=== PATIENT | male | born 1935 | race Caucasian/White ===

== ENCOUNTER → 2016-09-05 | Outpatient (CLI) | payer OTHER, MEDICARE ==
[~2016-09-05] MED LIST: ATOR-22 PO; BUSP-8 PO; CZR50 PO; DYZ PO; FLUOCINONIDE TOP; GLIM1TAB2 PO; LCHC12280 TOP; LEVO25TA5 PO; MULT-190 PO; SYMIN160 INH; TIMO1SOL6 OPB; TRIA0.0216 TOP
[2016-09-05 12:57] VITALS: BP 153/53; PULSE 66; TEMP 36.5; O2SAT 97
--- NOTE | 2016-09-05 14:12 | Radiation Oncology Follow-Up ---
Radiation Oncology Follow-Up Date of Visit Sep 05, 2016. Reason For Visit Annual follow-up Radiation Completion Date 01/22/12 Diagnosis (1) Prostate cancer Status: Resolved Onset Date: 11/01/2011 Location: left lobe of the prostate Histology Subtype: adenocarcinoma Stage: ll Permanent Comment: Rising PSA clinical stage TIc Status post ultrasound-guided biopsies. Biopsy stage T2a Tyro grade 3+3 and 3+4 Status post seed implant with cesium 131 as monotherapy 01/22/2012 Last Edited By: Ibis Das on Aug 31, 2015 14:07 Interim History He's been doing well over this past year. He feels his urinary status is stable. He gave an AUA score of 6. Last year his score was 8. He completed expanded prostate cancer index composite for clinical practice and gave a score of 0 of 12 and urinary incontinence symptoms. He gave a score of 212 and urinary irritation symptoms. He gave a score of 0 12 and bowel symptoms. He gave a score of 5 of 12 in sexual symptoms. He gave a score of one of 12 in hormonal vitality symptoms. His last PSA was 10/19/2015 was less than 0.010. He has a known history of dysphagia. He recently was evaluated with ENT scoping. He was found to have some changes of the vocal cords. He was referred for acupuncture which does seem to be helping with the problems that he has had with swallowing. Allergies Coded Allergies: No Known Allergies (Unverified , 07/13/13) Home Medications Scheduled Atorvastatin (Lipitor), 20 MG PO DAILY Budesonide/Formoterol Fumarate (Symbicort 160/4.5 Inhaler ), 2 PUFFS INH BID Glimepiride (Glimepiride), 2 TAB PO BID Levothyroxine Sodium (Levothyroxine Sodium), 1 TAB PO DAILY Losartan Potassium (Cozaar *), 100 MG PO DAILY Ocuvite Preservision (Ocuvite Preservision), 1 TAB PO BID Timolol Hemihydrate 0.25% Oph (Betimol 0.25% Oph), 1 DROP OPB HS Triamterene/Hctz (Dyazide 37.5MG/25MG *), 1 CAP PO DAILY Scheduled PRN Lactic Acid (Ammonium Lactate Cream 12%), 1 APPLN TOP DIRECTED PRN Triamcinolone Acet 0.025% (Aristocort 0.025%), 1 APPLN TOP PRN PRN [fluocinonide cream], 0.18 % TOP BID PRN for affected skin Review of Systems Gastrointestinal: Symptoms: WNL Oral: Symptoms: No Problems Other Oral Symptoms: patient has "weak esophagus" getting acupuncture Respiratory: Symptoms: WNL Other Respiratory: CRUZ, Coughs daily after breakfast trying to clear throat Urinary: Symptoms: WNL, Nocturia Comments: Nocturia x 1, Urgency, See AUA & EPIC Skin: Symptoms: No Problems Physical Exam Vital Signs Date Time Temp Pulse Resp B/P Pulse Ox O2 Delivery O2 Flow Rate FiO2 09/05/16 12:57 36.5 66 16 153/53 97 Fatigue: None General Appearance: no apparent distress Eyes: normal inspection, EOMI ENT: normal ENT inspection, hearing grossly normal Neck: no adenopathy, thyroid normal Respiratory/Chest: lungs clear, normal breath sounds, no respiratory distress Cardiovascular: regular rate, rhythm, no gallop, no murmur Abdomen: non tender, soft Anal / Rectum: Normal sphincter tone. Prostate consistent with seed implant. No rectal masses no rectal bleeding. Extremities: no pedal edema Neurologic/Psychiatric: alert, normal mood/affect Skin: warm/dry Lymphatic: no adenopathy Assessment & Plan Plan: An order was given to have a PSA obtained in October. He'll be notified as to results. Continue regular follow-up with ENT as well as Dr. Lo. We asked him to return to our office in 1 year. He may call our office if he has any questions or concerns in the interim. Total Time In Follow-Up I spent 15 minutes speaking to the patient and performing examination. I spent 15 minutes reviewing information in completing this note. Copy To Isael Lo M.D.
== END | disposition home or self-care (01) ==
LOC: C.ONC 12:43
PROVIDERS: ATTEND Radiology Radiation Oncology
DX: Z08 Encounter for follow-up examination after completed treatment for malignant neoplasm (principal); Z92.3 Personal history of irradiation; Z85.46 Personal history of malignant neoplasm of prostate

== ENCOUNTER → 2016-10-22 | Outpatient (CLI) | payer OTHER, MEDICARE ==
[~2016-10-22] MED LIST changes: -BUSP-8 PO
[2016-10-22 12:50] LABS: ALT/SGPT 36 U/L (12-78); AST/SGOT 17 U/L (15-37); BLOOD UREA NITROGEN 23 mg/dl (7-18); BUN/CREATININE RATIO 14.2 (10-20); CALCIUM 8.6 mg/dl (8.5-10.1); CARBON DIOXIDE 30 mmol/L (21-32); CHLORIDE 99 mmol/L (98-107); GLUCOSE 148 mg/dl (70-99); HEMATOCRIT 44.5 % (42-52); MEAN CELL VOLUME 86.7 fL (80-100); MEAN CORPUSCULAR HEMOGLOBIN 29.6 pg (25-34); MEAN CORPUSCULAR HGB CONC 34.2 g/dl (32-36); MEAN PLATELET VOLUME 8.3 fL (7.4-10.4); PLATELET COUNT 178 K/uL (130-400); POTASSIUM 3.6 mmol/L (3.5-5.1); RED BLOOD COUNT 5.13 M/uL (4.7-6.1); SODIUM 141 mmol/L (136-145); WHITE BLOOD COUNT 10.46 K/uL (4.8-10.8)
[2016-10-22 13:01] LABS: ALB/GLOB RATIO 0.9 (0.9-2); ALKALINE PHOSPHATASE 81 U/L (45-117); CHOLESTEROL 101 mg/dl (0-200); CHOLESTEROL/HDL RATIO 2.5; HDL CHOLESTEROL 41 mg/dl; LDL CHOLESTEROL CALCULATED 32 mg/dl; TRIGLYCERIDES 142 mg/dl (0-150); VERY LOW DENSITY LIPOPROT CALC 28 mg/dl
[2016-10-22 13:16] LABS: ESTIMATED AVERAGE GLUCOSE 151 mg/dl; HA1C FLAG Normal (Normal)
[2016-10-22 13:27] LABS: RATIO 25.1 mcg/mg (0-30.0)
== END | disposition home or self-care (01) ==
LOC: C.LABBFT 09:19
PROVIDERS: ATTEND Radiology Radiation Oncology
DX: C61 Malignant neoplasm of prostate (principal); E11.21 Type 2 diabetes mellitus with diabetic nephropathy

== ENCOUNTER → 2017-01-30 | Outpatient (CLI) | payer OTHER, MEDICARE ==
[2017-01-30 18:41] LABS: BLOOD UREA NITROGEN 20 mg/dl (7-18); BUN/CREATININE RATIO 13.4 (10-20); CALCIUM 8.5 mg/dl (8.5-10.1); CARBON DIOXIDE 30 mmol/L (21-32); CHLORIDE 107 mmol/L (98-107); GLUCOSE 110 mg/dl (70-99); POTASSIUM 3.8 mmol/L (3.5-5.1); SODIUM 142 mmol/L (136-145)
== END | disposition home or self-care (01) ==
LOC: C.LABBFT 11:50
PROVIDERS: ATTEND Physician Assistant Medical
DX: R60.0 Localized edema (principal)

== ENCOUNTER → 2017-02-08 | Outpatient (CLI) | payer OTHER, MEDICARE ==
[2017-02-08 16:17] LABS: HEMATOCRIT 44.7 % (42-52); MEAN CELL VOLUME 90.5 fL (80-100); MEAN CORPUSCULAR HEMOGLOBIN 30.6 pg (25-34); MEAN CORPUSCULAR HGB CONC 33.8 g/dl (32-36); PLATELET COUNT 116 K/uL (130-400); RED BLOOD COUNT 4.94 M/uL (4.7-6.1); WHITE BLOOD COUNT 6.36 K/uL (4.8-10.8)
[2017-02-08 16:24] LABS: ALT/SGPT 29 U/L (12-78); BLOOD UREA NITROGEN 16 mg/dl (7-18); BUN/CREATININE RATIO 11.6 (10-20); CALCIUM 8.5 mg/dl (8.5-10.1); CARBON DIOXIDE 28 mmol/L (21-32); CHLORIDE 105 mmol/L (98-107); GLUCOSE 130 mg/dl (70-99); POTASSIUM 3.7 mmol/L (3.5-5.1); SODIUM 142 mmol/L (136-145)
[2017-02-08 16:35] LABS: ALB/GLOB RATIO 1.2 (0.9-2); ALKALINE PHOSPHATASE 66 U/L (45-117); AST/SGOT 14 U/L (15-37)
== END | disposition home or self-care (01) ==
LOC: C.LABBFT 11:39
PROVIDERS: ATTEND Internal Medicine
DX: R60.0 Localized edema (principal)

== ENCOUNTER → 2017-02-15 | Outpatient (CLI) | payer OTHER, MEDICARE ==
--- NOTE | 2017-02-15 13:41 | DIAGNOSTIC IMAGING REPORT ---
ABDOMEN AND PELVIS CT WITH ORAL CONTRAST CT DOSE: 717.70 mGy.cm HISTORY: Bilateral lower extremity edema. Colon cancer. TECHNIQUE: Multiaxial CT images of the abdomen and pelvis were performed following the use of oral contrast. COMPARISON STUDY: Chest CT 11/18/2012. FINDINGS: Linear density at the lung bases suggestive of scarring or atelectasis. There are few scattered subcentimeter pulmonary nodules within the lung bases with the largest in the right middle lobe measuring 5 mm. These remain stable and are therefore likely benign. No pneumoperitoneum. No pneumatosis. Multiple brachytherapy seeds within the prostate gland. No suspicious lytic or blastic osseous lesions. Mild hepatic steatosis. No hepatic or splenic masses. The gallbladder, pancreas, and adrenal glands are unremarkable. No renal stones or hydronephrosis. Mild bilateral perinephric edema. This is likely chronic. The bladder is not well-distended but appears within normal limits. Small fat-containing left inguinal hernia. Atrophy of the right rectus abdominis muscle. No retroperitoneal lymphadenopathy. Normal caliber abdominal aorta. No pelvic lymphadenopathy. No bowel wall thickening or obstruction. Prior appendectomy. Evaluation for venous thrombus is essentially nondiagnostic due to the lack of intravenous contrast. IMPRESSION: 1. No bowel wall thickening or obstruction. 2. No renal stones or hydronephrosis. 3. Small fat-containing left inguinal hernia. 4. Stable bibasilar subcentimeter pulmonary nodules. Therefore, these are considered to be benign. Electronically signed by: Kobe Gee M.D. 02/15/2017 1:39 PM Dictated Date/Time: 02/15/2017 1:32 PM
== END | disposition home or self-care (01) ==
LOC: C.CTS 11:11
PROVIDERS: ATTEND Internal Medicine
DX: R60.0 Localized edema (principal); R91.1 Solitary pulmonary nodule; K40.90 Unilateral inguinal hernia, without obstruction or gangrene, not specified as recurrent

== ENCOUNTER → 2017-04-23 | Outpatient (CLI) | payer OTHER, MEDICARE ==
[2017-04-23 17:57] LABS: BASO % 0.4 %; BASO ABS # 0.03 K/uL (0-0.2); COMPLETE YES; EOS % 2.3 %; HEMATOCRIT 46.9 % (42-52); IG% 0.1 %; LYMPH % 31.5 %; LYMPH ABS # 2.15 K/uL (1.2-3.4); MEAN CELL VOLUME 90.7 fL (80-100); MEAN CORPUSCULAR HEMOGLOBIN 29.6 pg (25-34); MEAN CORPUSCULAR HGB CONC 32.6 g/dl (32-36); MEAN PLATELET VOLUME 9.3 fL (7.4-10.4); MONO % 13.5 %; NEUT % 52.2 %; PLATELET COUNT 131 K/uL (130-400); RED BLOOD COUNT 5.17 M/uL (4.7-6.1); WHITE BLOOD COUNT 6.82 K/uL (4.8-10.8)
[2017-04-23 18:19] LABS: ALT/SGPT 33 U/L (12-78); BLOOD UREA NITROGEN 17 mg/dl (7-18); BUN/CREATININE RATIO 12.8 (10-20); CALCIUM 8.9 mg/dl (8.5-10.1); CARBON DIOXIDE 27 mmol/L (21-32); CHLORIDE 106 mmol/L (98-107); CHOLESTEROL 131 mg/dl (0-200); GLUCOSE 134 mg/dl (70-99); SODIUM 141 mmol/L (136-145)
[2017-04-23 18:29] LABS: ALB/GLOB RATIO 1.2 (0.9-2); ALKALINE PHOSPHATASE 71 U/L (45-117); AST/SGOT 24 U/L (15-37); CHOLESTEROL/HDL RATIO 2.9; HDL CHOLESTEROL 45 mg/dl; LDL CHOLESTEROL CALCULATED 56 mg/dl; TRIGLYCERIDES 152 mg/dl (0-150); VERY LOW DENSITY LIPOPROT CALC 30 mg/dl
[2017-04-24 06:06] LABS: ESTIMATED AVERAGE GLUCOSE 126 mg/dl; HA1C FLAG Normal (Normal)
== END | disposition home or self-care (01) ==
LOC: C.LABBFT 11:50
PROVIDERS: ATTEND Internal Medicine
DX: E11.21 Type 2 diabetes mellitus with diabetic nephropathy (principal)

== ENCOUNTER → 2017-09-05 | Outpatient (CLI) | payer OTHER, MEDICARE ==
[~2017-09-05] MED LIST changes: +ADVIN25/60 INH; +FLUO0.0566 TOP; +FURO-85 PO; +SKINCRE34 TOP; +SPCCR30 TOP
[2017-09-05 13:39] VITALS: BP_SYST 180; BP_SYST 191; BP_DIAS 79; BP_DIAS 93; PULSE 60; TEMP 36.7; O2SAT 97
--- NOTE | 2017-09-05 16:10 | Radiation Oncology Follow-Up ---
Radiation Oncology Follow-Up Date of Visit Sep 05, 2017. Reason For Visit Annual follow-up Radiation Completion Date 01/22/12 Cesium 131 seed implant for prostate cancer Diagnosis (1) Prostate cancer Status: Resolved Onset Date: 11/01/2011 Location: left lobe of the prostate Histology Subtype: adenocarcinoma Stage: ll Permanent Comment: Rising PSA clinical stage TIc Status post ultrasound-guided biopsies. Biopsy stage T2a Browning grade 3+3 and 3+4 Status post seed implant with cesium 131 as monotherapy 01/22/2012 Last Edited By: Ibis Das on Aug 31, 2015 14:07 Interim History He is been doing well from urinary standpoint. Today he gave his AUA score of 10. Last year he gave a score of 6. He does have increased urination in the morning due to his diuretic. He completed and expanded prostate cancer index composite for clinical practice and gave a score of one of 12 urinary incontinence symptoms. He gave a score of one of 12 and urinary irritation symptoms. He gave a score of 0 of 12 and bowel symptoms. He gave a score of 7 of 12 and sexual symptoms. He gave a score of 0 of 12 and hormonal vitality symptoms. His total was 9 of 60. He had a PSA performed 10/22/2016. That was less than 0.010. His PSAs have been excellent since 2011. He has had issues with hoarseness of the voice. He also had problems with swallowing. He saw an hospice volunteer coordinator and is greatly improved. He has had issues lately with peripheral edema. He is being followed by his PCP and is on a diuretic. Allergies Coded Allergies: No Known Allergies (Unverified , 07/13/13) Home Medications Scheduled Atorvastatin (Lipitor), 20 MG PO DAILY Fluocinonide (Fluocinonide), 1 APPLN TOP BID Furosemide (Lasix), 1 TAB PO DAILY Glimepiride (Glimepiride), 2 TAB PO BID Levothyroxine Sodium (Levothyroxine Sodium), 1 TAB PO DAILY Losartan Potassium (Cozaar *), 100 MG PO DAILY Ocuvite Preservision (Ocuvite Preservision), 1 TAB PO BID Timolol Hemihydrate 0.25% Oph (Betimol 0.25% Oph), 1 DROP OPB HS Scheduled PRN Econazole Nitrate (Econazole Nitrate Crm 1% 30 Gm), 1 APPLN TOP BID PRN for Itching Eucerin (Eucerin), 1 APPLN TOP UD PRN for Itching Fluticasone Prop/Salmeterol (Advair Diskus 250/50 60 Dose), 1 PUFFS INH BID PRN for SOB/Wheezing Lactic Acid (Ammonium Lactate Cream 12%), 1 APPLN TOP DIRECTED PRN Lactic Acid (Ammonium Lactate Cream 12%), 1 APPLN TOP BID PRN for Itching Triamcinolone Acet 0.025% (Aristocort 0.025%), 1 APPLN TOP PRN PRN Review of Systems Gastrointestinal: Symptoms: WNL GI Comments: No fiber supplements; Oral: Symptoms: No Problems Other Oral Symptoms: patient has "weak esophagus" getting acupuncture Respiratory: Symptoms: Dry Cough, SOB With Exertion Sputum Character: Hoarseness of voice that he relates to his inhaler; Other Respiratory: Nothing more than typical;relates this to his COPD Urinary: Symptoms: WNL, Nocturia Comments: Doesn't ignore urge to void;2 hrs is limit betw'n voids; Skin: Symptoms: No Problems Physical Exam Vital Signs Date Time Temp Pulse Resp B/P (MAP) Pulse Ox O2 Delivery O2 Flow Rate FiO2 09/05/17 13:39 36.7 60 16 191/79 97 180/93 Fatigue: None General Appearance: no apparent distress Eyes: normal inspection, EOMI ENT: normal ENT inspection, hearing grossly normal Respiratory/Chest: lungs clear, no respiratory distress, no accessory muscle use Cardiovascular: regular rate, rhythm, no gallop, no murmur Abdomen: non tender, soft, no organomegaly Anal / Rectum: Mildly laxed sphincter tone. There are external and internal hemorrhoids. Prostate is consistent with a seed implant. There are no rectal masses and no rectal bleeding. Extremities: no pedal edema Neurologic/Psychiatric: no motor/sensory deficits, alert, normal mood/affect Skin: warm/dry Pain Management Patient Reports Pain: No Pain Location: None Patient Preferred Pain Scale: 0 - 10 Initial Pain Intensity: 0.0 Pain Management Plan He denies pain therefore requires no pain management. Laboratory Laboratory Results: were reviewed Laboratory Comments: Reviewed in the interim history. Pathology Pathology Results: not applicable Imaging Imaging Studies: not applicable Assessment & Plan Plan: He will be due for a PSA in October. He was given an order and instructions on where to present for the laboratory study here at the hospital. He'll continue follow-up with Dr. Lo. A follow-up appointment with our office was not given. He may continue his PSAs through Dr. Lo's office. These should be performed once year. Follow-up digital rectal examinations can also performed through the primary care's office. He may call our office if he has any questions or concerns. Total Time In Follow-Up I spent 20 minutes being to the patient and performing examination. I spent 15 minutes reviewing information and completing this note. Copy To Isael Lo M.D.
== END | disposition home or self-care (01) ==
LOC: C.ONC 13:18
PROVIDERS: ATTEND Physician Assistant Medical
DX: Z08 Encounter for follow-up examination after completed treatment for malignant neoplasm (principal); Z92.3 Personal history of irradiation; Z85.46 Personal history of malignant neoplasm of prostate

== ENCOUNTER → 2017-09-09 | Outpatient (CLI) | payer OTHER, MEDICARE ==
[~2017-09-09] MED LIST changes: -DYZ PO; -FLUOCINONIDE TOP; -SYMIN160 INH
[2017-09-09 12:39] LABS: BASO % 0.4 %; BASO ABS # 0.03 K/uL (0-0.2); EOS % 4.2 %; EOS ABS # 0.33 K/uL (0-0.5); HEMATOCRIT 47.6 % (42-52); HEMOGLOBIN 16.1 g/dL (14.0-18.0); IG# 0.02 K/uL (0.00-0.02); LYMPH % 24.9 %; LYMPH ABS # 1.94 K/uL (1.2-3.4); MEAN CELL VOLUME 88.5 fL (80-100); MEAN CORPUSCULAR HEMOGLOBIN 29.9 pg (25-34); MEAN CORPUSCULAR HGB CONC 33.8 g/dl (32-36); MONO % 14.2 %; MONO ABS # 1.11 K/uL (0.11-0.59); NEUT ABS # 4.36 K/uL (1.4-6.5); PLATELET COUNT 116 K/uL (130-400); RED CELL DISTRIBUTION WIDTH CV 13.7 % (11.5-14.5); RED CELL DISTRIBUTION WIDTH SD 44.2 fL (36.4-46.3); WHITE BLOOD COUNT 7.79 K/uL (4.8-10.8)
[2017-09-09 12:53] LABS: HEMOGLOBIN A1C 6.2 % (4.5-5.6)
[2017-09-09 13:39] LABS: ALBUMIN 3.7 gm/dl (3.4-5.0); ALT/SGPT 41 U/L (12-78); AST/SGOT 24 U/L (15-37); BLOOD UREA NITROGEN 18 mg/dl (7-18); CALCIUM 8.6 mg/dl (8.5-10.1); CARBON DIOXIDE 31 mmol/L (21-32); CREATININE 1.46 mg/dl (0.60-1.40); GLUCOSE 160 mg/dl (70-99); POTASSIUM 3.4 mmol/L (3.5-5.1); SODIUM 139 mmol/L (136-145)
[2017-09-09 13:50] LABS: ALKALINE PHOSPHATASE 93 U/L (45-117); CHOLESTEROL 107 mg/dl (0-200); LDL CHOLESTEROL CALCULATED 32 mg/dl; TOTAL PROTEIN 7.3 gm/dl (6.4-8.2)
== END | disposition home or self-care (01) ==
LOC: C.LABBFT 09:00
PROVIDERS: ATTEND Internal Medicine
DX: E11.21 Type 2 diabetes mellitus with diabetic nephropathy (principal)

== ENCOUNTER → 2017-11-12 | Outpatient (CLI) | payer OTHER, MEDICARE | END | disposition home or self-care (01) | LOC: C.LAB 11:37 | PROVIDERS: ATTEND Physician Assistant Medical | DX: C61 Malignant neoplasm of prostate (principal) ==

== ENCOUNTER → 2018-03-10 | Outpatient (CLI) | payer OTHER, MEDICARE ==
[2018-03-10 17:57] LABS: BLOOD UREA NITROGEN 19 mg/dl (7-18); CALCIUM 8.6 mg/dl (8.5-10.1); CARBON DIOXIDE 29 mmol/L (21-32); CREATININE 1.39 mg/dl (0.60-1.40); GLUCOSE 136 mg/dl (70-99); POTASSIUM 3.9 mmol/L (3.5-5.1); SODIUM 141 mmol/L (136-145)
== END | disposition home or self-care (01) ==
LOC: C.LABBFT 15:32
PROVIDERS: ATTEND Physician Assistant Medical
DX: I10 Essential (primary) hypertension (principal)

== ENCOUNTER → 2018-03-21 | Outpatient (CLI) | payer OTHER, MEDICARE ==
[2018-03-21 18:00] LABS: ALBUMIN 3.9 gm/dl (3.4-5.0); BLOOD UREA NITROGEN 19 mg/dl (7-18); CALCIUM 8.6 mg/dl (8.5-10.1); CARBON DIOXIDE 28 mmol/L (21-32); CREATININE 1.49 mg/dl (0.60-1.40); GLUCOSE 175 mg/dl (70-99); PHOSPHORUS 3.6 mg/dl (2.5-4.9); SODIUM 137 mmol/L (136-145)
== END | disposition home or self-care (01) ==
LOC: C.LABBFT 14:26
PROVIDERS: ATTEND Physician Assistant Medical
DX: I10 Essential (primary) hypertension (principal)

== ENCOUNTER 2023-09-12 19:40 | Inpatient (IN) ==
[2023-09-12] MEDS ORDERED: ALBUT/IPRATROP 3MG/0.5MG NEB 3 ML VIAL ONE (20:04)
[2023-09-12] MEDS ORDERED: methylPREDNISolone 125 MG/2 ML VIAL ONE (20:04)
[2023-09-12] MEDS ORDERED: ALBUT/IPRATROP 3MG/0.5MG NEB 3 ML VIAL NEB STA ×2 (20:04→20:25)
[2023-09-12] MEDS ORDERED: methylPREDNISolone 125 MG/2 ML VIAL IV STA (20:04)
[2023-09-12] MEDS ORDERED: ALBUT/IPRATROP 3MG/0.5MG NEB 3 ML VIAL NEB ONE (20:14)
[2023-09-12 20:37] LABS: Base Excess VBG 0 mEq/L; HCO3 VBG 29 mmol/L; Oxygen Saturation VBG 69.5 %; PCO2 VBG 68 mmHg (38-50); PO2 VBG 49 mmHg; pH VBG 7.24 (7.36-7.41)
[2023-09-12 20:58] LABS: Anion Gap 13 (3-11); BUN Creatinine Ratio 12.6 (10-20); Blood Urea Nitrogen 13 mg/dl (6-23); Calcium 9.5 mg/dl (8.6-10.3); Carbon Dioxide 26 mmol/L (21-32); Chloride 95 mmol/L (98-107); Est GFR (African American) 74.3 ml/min; Est GFR (Non-African American) 64.1 ml/min; Glucose 142 mg/dl (70-99(Fasting)); Lipase 27 U/L (11-82); Potassium 3.9 mmol/L (3.5-5.1); Sodium 134 mmol/L (136-145)
[2023-09-12 21:04] LABS: Troponin I High Sensitivity 17.3 pg/ml (0-20)
[2023-09-12 21:06] LABS: Basophils # (auto) 0.05 K/uL (0.00-0.20); Basophils % (auto) 0.3 %; Eosinophils # (auto) 0.03 K/uL (0.00-0.50); Eosinophils % (auto) 0.2 %; Hematocrit (blood only) 53.5 % (42.0-52.0); Hemoglobin 17.3 g/dl (14.0-18.0); Immature Granulocytes # (auto) 0.08 K/uL (0.01-0.20); Immature Granulocytes % (auto) 0.5 %; Lymphocytes # (auto) 2.42 K/uL (1.20-3.40); Lymphocytes % (auto) 14.9 %; Mean Corpuscular Hemoglobin 29.7 pg (25.0-34.0); Mean Corpuscular Hgb Conc 32.3 g/dL (32.0-36.0); Mean Corpuscular Volume 91.8 fL (80.0-100.0); Mean Platelet Volume 8.7 fL (9.4-12.4); Monocytes # (auto) 1.65 K/uL (0.11-0.59); Monocytes % (auto) 10.2 %; Neutrophils # (auto) 11.99 K/uL (1.40-6.50); Neutrophils % (auto) 73.9 %; Platelet Count 124 K/uL (130-400); RDW Standard Deviation 43.8 fL (36.4-46.3); Red Blood Count 5.83 M/uL (4.70-6.10); White Blood Count 16.22 K/ul (4.8-10.8)
[2023-09-12 21:10] LABS: INR 1.1 (0.9-1.1); Partial Thromboplastin Ratio 1.1; Partial Thromboplastin Time 31 Seconds (21-31); Prothrombin Time 12.1 Seconds (9.0-12.0)
[2023-09-12] MEDS ORDERED: AZITHROMYCIN 500 MG in DEXTROSE 5% 250 ML IV STA (21:28)
[2023-09-12 21:43] LABS: Adenovirus PCR Not Detected (NotDetected); Bordetella parapertussis PCR Not Detected (NotDetected); Bordetella pertussis PCR Not Detected (NotDetected); Chlamydia pneumoniae PCR Not Detected (NotDetected); Coronavirus CoV-2 (COVID19)PCR Not Detected (NotDetected); Coronavirus HKU1 PCR Not Detected (NotDetected); Coronavirus NL63 PCR Not Detected (NotDetected); Coronavirus OC43PCR Not Detected (NotDetected); Human Metapneumovirus PCR Not Detected (NotDetected); Influenza A PCR Not Detected (NotDetected); Influenza B PCR Not Detected (NotDetected); Mycoplasma pneumoniae PCR Not Detected (NotDetected); Parainfluenza Virus 1 PCR Not Detected (NotDetected); Parainfluenza Virus 2 PCR Not Detected (NotDetected); Parainfluenza Virus 3 PCR Not Detected (NotDetected); Parainfluenza Virus 4 PCR Not Detected (NotDetected); Respiratory Syncytial VirusPCR Not Detected (NotDetected); Rhinovirus/Enterovirus PCR Not Detected (NotDetected)
[2023-09-12 21:46] LABS: Coronavirus 229E PCR DETECTED (NotDetected)
--- NOTE | 2023-09-12 22:43 | Emergency Department Note ---
History of Present Illness General Chief Complaint: Shortness of Breath/Dyspnea Stated Complaint: TROUBLE BREATHING, COPD, RECENT MED CHANGE Time Seen by Provider: 09/12/23 19:59 History of Present Illness Provider Complaint: shortness of breath Onset (ago): day(s) (2) Severity: severe Consistency/Duration: + progressively worsening Relieved By: + nothing Exacerbated By: + lying flat, + exertion and + coughing Context: + other (Patient reports his symptoms began after he got an RSV vaccine yesterday) Known history of: COPD (No history of intubation or ICU admission for his breathing) Associated symptoms: + cough, + wheezing, + sputum production, + orthopnea and + chest congestion; no hemoptysis or no syncope Related Data Home oxygen amount: none Home Medications Medication Instructions Recorded Confirmed Type albuterol sulfate 90 mcg/actuation 2 puffs inhalation Q4H PRN 03/25/19 09/12/23 History aerosol inhaler Wheezing #1 g econazole 1 % topical cream 1 appln topical BID PRN Rash #60 03/25/19 09/12/23 History grams fluocinonide 0.1 % topical cream 1 appln topical BID PRN Rash #1 g 03/25/19 09/12/23 History timolol maleate 0.5 % eye drops 1 drops ophthalmic (eye) HS 03/25/19 09/12/23 History multivitamin 1 tab PO QAM 04/14/21 09/12/23 History clotrimazole 1 % topical cream 1 applic topical BID 7 days #15 08/21/22 09/12/23 Rx (Antifungal (clotrimazole)) grams furosemide 40 mg tablet 40 mg PO QAM #90 tabs 10/05/22 09/12/23 Rx atorvastatin 20 mg tablet 20 mg PO PM #90 tabs 12/03/22 09/12/23 Rx metformin 500 mg tablet,extended 500 mg PO DAILY #90 tabs 03/28/23 09/12/23 Rx release 24 hr empagliflozin 25 mg tablet 25 mg PO DAILY 90 days #90 tabs 06/05/23 09/12/23 Rx (Jardiance) amlodipine 10 mg tablet 10 mg PO QAM #90 tabs 06/06/23 09/12/23 Rx levothyroxine 50 mcg tablet 50 mcg PO QAM #90 tabs 06/07/23 09/12/23 Rx lisinopril 40 mg tablet 40 mg PO QAM #90 tabs 06/07/23 09/12/23 Rx fluticasone 100 mcg-salmeterol 50 1 inh inhalation BID 30 days #60 ea 09/02/23 09/12/23 Rx mcg/dose blistr powdr for inhalation (Wixela Inhub) metoprolol succinate 25 mg 25 mg PO DAILY #30 tabs 09/02/23 09/12/23 Rx tablet,extended release 24 hr triamcinolone acetonide 0.1 % 1 applic topical DAILY #30 grams 09/02/23 09/12/23 Rx topical cream vitamins A,C,W-gzxr-zismnn 2,148 2 tab PO BID 09/12/23 09/12/23 History mcg-113 mg-45 mg-17.4 mg tablet Allergies Allergy/AdvReac Type Severity Reaction Status Date / Time hydralazine AdvReac Severe 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 Villalobos Chronic obstructive pulmonary disease Thrombocytopenia Prostate cancer (11/01/11) "Rising PSA clinical stage TIc Status post ultrasound-guided biopsies. Biopsy stage T2a Raphael grade 3+3 and 3+4 Status post seed implant with cesium 131 as monotherapy 01/22/2012 " Surgical History History of cataract surgery B/L August and September 2021 History of colonoscopy Hx of inguinal hernia repair left S/P trigger finger release several History of tooth extraction Hx of surgical procedure parotid gland surgery left side S/P partial colectomy Family History Mother Hypertension Father Cancer lung Denies family history of Ovarian cancer Prostate cancer Kidney disease Myocardial infarction Breast cancer Colorectal cancer Social History Smoking Status: Unknown if ever smoked Tobacco Type: Cigarettes Age Started Using Tobacco: 18; Age Quit Using Tobacco: 59; packs per day: 1; Second Hand Exposure: No; Do You Dip or Chew Tobacco: No; Hx Alcohol Use: No Hx Substance Use: No Preferred Language: Occitan Communication Ability: Effective Visual Impairment: No Limitations Hearing Ability: Use of Hearing Aid Phone Specialist Required: No Beliefs That Will Affect Care: None marital status: / Current Living Situation: Alone current occupational status: retired 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[employer], 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 Feels Safe at Home: Yes Childhood Exposure to Second-Hand Smoke: Yes Diet: regular Dental Care, Regularly: Yes Physical Activity Frequency: Daily Seatbelt Use: always Sunscreen Use: Yes Assistive Devices: Glasses and Hearing Aid - Bilateral Physical Exam 2 Vital Signs: Vital Signs - 24 hr 09/12/23 19:55 09/12/23 20:00 09/12/23 20:27 Temperature 36.6 C Temperature Source Temporal Artery Sc an Pulse Rate 99 H 100 H Pulse Rate [Finger ] 87 Respiratory Rate 24 29 H Respiratory Effort / Characteristics Non-Labored Spontaneous Respiratory Depth Normal Respiratory Patter n Blood Pressure 172/90 H Blood Pressure Rossy n 117 Pulse Oximetry 71 L 95 Oxygen Delivery Me thod Room Air BiPAP Oxygen Flow Rate Fraction of Inspir ed Oxygen 28 SaO2/FiO2 Ratio Sepsis Recent Feve r Within 48 Hours No Sepsis New/Unexpla ined Change in Men sheba Status No Sepsis Action Take n by Nursing No Action Required 09/12/23 20:27 09/12/23 20:31 09/12/23 20:31 Temperature Temperature Source Pulse Rate 87 Pulse Rate [Finger ] Respiratory Rate 27 H Respiratory Effort / Characteristics Non-Labored Sponta neous Spontaneous Short of Breath Respiratory Depth Normal Respiratory Patter n Regular Tachypnea Blood Pressure Blood Pressure Rossy n Pulse Oximetry 96 100 Oxygen Delivery Me thod BiPAP BiPAP Oxygen Flow Rate 28 Fraction of Inspir ed Oxygen 28 28 SaO2/FiO2 Ratio Sepsis Recent Feve r Within 48 Hours Sepsis New/Unexpla ined Change in Men sheba Status Sepsis Action Take n by Nursing 09/12/23 21:18 09/12/23 22:32 Temperature Temperature Source Pulse Rate 73 104 H Pulse Rate [Finger ] Respiratory Rate 24 20 Respiratory Effort / Characteristics Non-Labored Sponta neous Respiratory Depth Normal Respiratory Patter n Regular Blood Pressure Blood Pressure Rossy n Pulse Oximetry 99 100 Oxygen Delivery Me thod BiPAP Oxygen Flow Rate Fraction of Inspir ed Oxygen 28 28 SaO2/FiO2 Ratio 353 Sepsis Recent Feve r Within 48 Hours Sepsis New/Unexpla ined Change in Men sheba Status Sepsis Action Take n by Nursing Physical Exam: Physical Exam GENERAL: oriented to person, place, and time. appears well-developed and well- nourished. HENT: Exam performed. - Head: Normocephalic and atraumatic. EYES: Conjunctivae and EOM are normal. Right eye exhibits no discharge. Left eye exhibits no discharge. No scleral icterus. NECK: Normal range of motion. Neck supple. No JVD present. CV: Normal rate, regular rhythm, normal heart sounds and intact distal pulses. There is no peripheral edema. Palpable radial pulses bue. PULM/CHEST: Expiratory wheezes bilaterally. Rhonchi bilaterally. ABD: The abdomen is soft. There is no tenderness. NEURO: Motor and sensation grossly intact. SKIN: Skin is warm and dry. He is not diaphoretic. PSYCH: normal mood and affect. Behavior is normal. Judgment and thought content normal. Course Course 1958: The patient was evaluated in room C5. A complete history and physical exam was performed Cardiac monitoring: An order was placed for continuous cardiac monitoring. The monitor shows a rate of 90 with sinus rhythm interpreted by me Patient found to be hypoxic on room air. Supplemental oxygen was applied. Chest x-ray was obtained and it did not show any pneumothorax or congestive changes. Possible pneumonia versus COPD. Patient be started on BiPAP. DuoNebs ordered for the patient as well as Solu-Medrol 125 mg. Bio fire and labs will be sent off. 2034: Patient tolerating BiPAP well 10/6 at 28% FiO2. 2144: Vital signs stable on supplemental oxygen via BiPAP. Labs show leukocytosis 16.22. Venous pH 7.24 venous pCO2 68 venous bicarb 29. High sensitive troponin 17.3. BNP 225. Chest x-ray shows no cardiomegaly or congestive changes does show possible right sided infiltrate. Patient will be treated with azithromycin also in case of any COPD exacerbation. Will await BioFire results to see if any other antibiotics are needed. [facility] team Dr. Paiz's team notified. 2215: Patient is positive for coronavirus 229E. No additional antibiotics given. Administered Medications Azithromycin 500 mg/ Dextrose 255 mls @ 127.5 mls/hr IV NOW STA Stop: 09/12/23 23:27 Last Admin: 09/12/23 22:05 Dose: 127.5 mls/hr Documented By: CPB Discontinued Medications Albuterol (Albut/Ipratrop 3mg/0.5mg Neb 3 Ml Vial) Confirm Administered Dose 3 ml .ROUTE .STK-MED ONE Stop: 09/12/23 20:05 Last Admin: 09/12/23 20:47 Dose: Not Given Documented By: VELVET Albuterol (Albut/Ipratrop 3mg/0.5mg Neb 3 Ml Vial) 3 ml NEB NOW STA; Protocol Stop: 09/12/23 20:05 Last Admin: 09/12/23 20:47 Dose: Not Given Documented By: VELVET Albuterol (Albut/Ipratrop 3mg/0.5mg Neb 3 Ml Vial) 12 ml NEB ONE ONE; Protocol Stop: 09/12/23 20:15 Last Admin: 09/12/23 20:46 Dose: Not Given Documented By: VELVET Albuterol (Albut/Ipratrop 3mg/0.5mg Neb 3 Ml Vial) 12 ml NEB NOW STA; Protocol Stop: 09/12/23 20:26 Last Admin: 09/12/23 20:26 Dose: 12 ml Documented By: VELVET Methylprednisolone (Methylprednisolone 125 Mg/2 Ml Vial) Confirm Administered Dose 125 mg .ROUTE .STK-MED ONE Stop: 09/12/23 20:05 Last Admin: 09/12/23 20:30 Dose: Not Given Documented By: CPB Methylprednisolone (Methylprednisolone 125 Mg/2 Ml Vial) 125 mg IV NOW STA Stop: 09/12/23 20:05 Last Admin: 09/12/23 20:30 Dose: 125 mg Documented By: CPB Medical Decision Making Laboratory Data Attestation: I reviewed the patient's lab results. 09/12/23 20:14 09/12/23 20:14 Lab Results 09/12/23 Range/Units 20:14 WBC 16.22 H (4.8-10.8) K/ul RBC 5.83 (4.70-6.10) M/uL Hgb 17.3 (14.0-18.0) g/dl Hct 53.5 H (42.0-52.0) % MCV 91.8 (80.0-100.0) fL MCH 29.7 (25.0-34.0) pg MCHC 32.3 (32.0-36.0) g/dL RDW Std Deviation 43.8 (36.4-46.3) fL RDW Coeff of Mode 13.0 (11.5-14.5) % Plt Count 124 L (130-400) K/uL MPV 8.7 L (9.4-12.4) fL Immature Gran % (Auto) 0.5 % Neut % (Auto) 73.9 % Lymph % (Auto) 14.9 % Milam % (Auto) 10.2 % Eos % (Auto) 0.2 % Baso % (Auto) 0.3 % Neut # (Auto) 11.99 H (1.40-6.50) K/uL Lymph # (Auto) 2.42 (1.20-3.40) K/uL Milam # (Auto) 1.65 H (0.11-0.59) K/uL Eos # (Auto) 0.03 (0.00-0.50) K/uL Baso # (Auto) 0.05 (0.00-0.20) K/uL Immature Gran # (Auto) 0.08 (0.01-0.20) K/uL PT 12.1 H (9.0-12.0) Seconds INR 1.1 (0.9-1.1) APTT 31 (21-31) Seconds PTT Ratio 1.1 VBG pH 7.24 L (7.36-7.41) VBG pCO2 68 H (38-50) mmHg VBG pO2 49 mmHg VBG HCO3 29 mmol/L VBG O2 Saturation 69.5 % VBG Base Excess 0 mEq/L Sodium 134 L (136-145) mmol/L Potassium 3.9 (3.5-5.1) mmol/L Chloride 95 L (98-107) mmol/L Carbon Dioxide 26 (21-32) mmol/L Anion Gap 13 H (3-11) BUN 13 (6-23) mg/dl Creatinine 1.03 (0.6-1.4) mg/dl Est Cr Clr Drug Dosing Not Reportable Est GFR ( Amer) 74.3 ml/min Est GFR (Non-Af Amer) 64.1 ml/min BUN/Creatinine Ratio 12.6 (10-20) Glucose 142 H (70-99(Fasting)) mg/dl Calcium 9.5 (8.6-10.3) mg/dl Troponin I High Sens 17.3 (0-20) pg/ml B-Natriuretic Peptide 225 H (0-100) pg/ml Lipase 27 (11-82) U/L Adenovirus (PCR) Not Detected (NotDetected) B. pertussis DNA (PCR) Not Detected (NotDetected) B.parapertussis DNA PCR Not Detected (NotDetected) C. pneumoniae DNA (PCR) Not Detected (NotDetected) Coronavirus OC43 (PCR) Not Detected (NotDetected) Coronavirus HKU1 (PCR) Not Detected (NotDetected) Coronavirus 229E (PCR) DETECTED A* (NotDetected) SARS-CoV-2 (PCR) Not Detected (NotDetected) Coronavirus NL63 (PCR) Not Detected (NotDetected) Human Metapneumovir PCR Not Detected (NotDetected) Influenza Type A (PCR) Not Detected (NotDetected) Influenza Type B (PCR) Not Detected (NotDetected) M. pneumoniae (PCR) Not Detected (NotDetected) Parainfluenza 1 (PCR) Not Detected (NotDetected) Parainfluenza 2 (PCR) Not Detected (NotDetected) Parainfluenza 3 (PCR) Not Detected (NotDetected) Parainfluenza 4 (PCR) Not Detected (NotDetected) RSV (PCR) Not Detected (NotDetected) Entero/Rhino (PCR) Not Detected (NotDetected) Imaging Data Attestation: I personally reviewed and interpreted this imaging study as follows: My Impression: Right-sided infiltrate. No pneumothorax. No cardiomegaly or congestive changes. No free air in the diaphragm no skeletal fractures. ECG Data Attestation: I personally reviewed and interpreted this ECG as follows: Interpretation: Sinus rhythm with rate 96. IN 212 QRS [address] elevation or ST depression. First-degree AV block present. PVCs present. [facility] Narrative 195: The patient was evaluated in room C5. A complete history and physical exam was performed Cardiac monitoring: An order was placed for continuous cardiac monitoring. The monitor shows a rate of 90 with sinus rhythm interpreted by me Patient found to be hypoxic on room air. Supplemental oxygen was applied. Chest x-ray was obtained and it did not show any pneumothorax or congestive changes. Possible pneumonia versus COPD. Patient be started on BiPAP. DuoNebs ordered for the patient as well as Solu-Medrol 125 mg. Bio fire and labs will be sent off. 2034: Patient tolerating BiPAP well 10/6 at 28% FiO2. 2144: Vital signs stable on supplemental oxygen via BiPAP. Labs show leukocytosis 16.22. Venous pH 7.24 venous pCO2 68 venous bicarb 29. High sensitive troponin 17.3. BNP 225. Chest x-ray shows no cardiomegaly or congestive changes does show possible right sided infiltrate. Patient will be treated with azithromycin also in case of any COPD exacerbation. Will await BioFire results to see if any other antibiotics are needed. Patient will be admitted to the [facility] team Dr. Paiz's team notified. 2214: Patient is positive for coronavirus 229E. No additional antibiotics given. Impression & Plan Hypoxia, COPD exacerbation, Coronavirus infection Critical Care Time Critical Care Time: Yes Total Critical Care Time: 49 I have personally spent greater than 49 minutes of critical care time in the direct management of this patient. This includes bedside care, interpretation of diagnostic studies, and testing, discussion with consultants, patient, and family members, and other required patient management activities. This 49 minutes is in excess of all separately billable procedures. Discharge Plan Visit Data Chief Complaint: Shortness of Breath/Dyspnea Stated Complaint: TROUBLE BREATHING, COPD, RECENT MED CHANGE ED Provider: Abdoul Wilson Discharge Problem: Hypoxia, COPD exacerbation, Coronavirus infection Patient Disposition: Admitted As Inpatient Forms Stand Alone Forms: My [facility] Prescriptions Prescriptions: No Action clotrimazole [Antifungal (clotrimazole)] 1 % cream 1 applic topical BID 7 Days Qty: 15 0RF furosemide 40 mg tablet 40 mg PO QAM Qty: 90 3RF atorvastatin 20 mg tablet 20 mg PO PM Qty: 90 3RF metformin 500 mg tablet extended release 24 hr 500 mg PO DAILY Qty: 90 3RF Jardiance 25 mg tablet 25 mg PO DAILY 90 Days Qty: 90 3RF amlodipine 10 mg tablet 10 mg PO QAM Qty: 90 3RF levothyroxine 50 mcg tablet 50 mcg PO QAM Qty: 90 3RF lisinopril 40 mg tablet 40 mg PO QAM Qty: 90 3RF econazole 1 % cream 1 appln topical BID PRN (Reason: Rash) Qty: 60 fluocinonide 0.1 % cream 1 appln topical BID PRN (Reason: Rash) Qty: 1 albuterol sulfate 90 mcg/actuation HFA aerosol inhaler 2 puffs inhalation Q4H PRN (Reason: Wheezing) Qty: 1 timolol maleate 0.5 % drops 1 drops OP HS metoprolol succinate 25 mg tablet extended release 24 hr 25 mg PO DAILY Qty: 30 2RF triamcinolone acetonide 0.1 % cream 1 applic topical DAILY Qty: 30 0RF fluticasone propion-salmeterol [Wixela Inhub] 100-50 mcg/dose blister with device 1 inh inhalation BID 30 Days Qty: 60 3RF multivitamin Tablet 1 tab PO QAM Ocuvite Preservision 2,148 mcg-113 mg-45 mg-17.4mg Tablet 2 tab PO BID Rx Instructions: administer with AM and PM meals Referrals Referrals: Prisca Arenas MD [Primary Care Provider] -
--- NOTE | 2023-09-13 00:34 | History & Physical Report ---
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 twice daily Duonebs every 4 hours while awake and every 2 hours when necessary. Azithromycin 500 mg IV daily Ceftriaxone 2 g IV daily Continue Breo Ellipta and Advair Droplet precautions Target pulse ox 92% Diabetes mellitus- Hold empagliflozin and metformin Placed on Accu-Cheks with NovoLog SSI, expect increase while on IV Solu-Medrol Hypertension- Continue amlodipine, furosemide, and lisinopril History of Present Illness Chief Complaint: The patient presents to the emergency department with worsening shortness of breath over the past 2 to 3 days, and reports he got the RSV vaccine yesterday Primary Care Provider: Prisca Arenas MD The patient is an 88-year-old male with a past medical history including vitamin D deficiency, MGUS, hypothyroidism, hyperlipidemia, GERD, COPD, CKD stage III, hypertension, diabetes mellitus and history of tobacco last use in the . He has become progressively more short of breath over the past 2 to 3 days, which began before administration of the recent RSV vaccine. In the emergency department, due to hypoxia, he was placed on BiPAP, and given an hour-long DuoNeb treatment and Solu-Medrol 125 mg IV, which he reports has made his breathing significantly improved Allergies Allergy/AdvReac Type Severity Reaction Status Date / Time hydralazine AdvReac Severe Lupus like Verified 09/02/23 14:35 syndrome Home Medications Medication Instructions Recorded Confirmed Type albuterol sulfate 90 mcg/actuation 2 puffs inhalation Q4H PRN 03/25/19 09/12/23 History aerosol inhaler Wheezing #1 g econazole 1 % topical cream 1 appln topical BID PRN Rash #60 03/25/19 09/12/23 History grams fluocinonide 0.1 % topical cream 1 appln topical BID PRN Rash #1 g 03/25/19 09/12/23 History timolol maleate 0.5 % eye drops 1 drops ophthalmic (eye) HS 03/25/19 09/12/23 History multivitamin 1 tab PO QAM 04/14/21 09/12/23 History clotrimazole 1 % topical cream 1 applic topical BID 7 days #15 08/21/22 09/12/23 Rx (Antifungal (clotrimazole)) grams furosemide 40 mg tablet 40 mg PO QAM #90 tabs 10/05/22 09/12/23 Rx atorvastatin 20 mg tablet 20 mg PO PM #90 tabs 12/03/22 09/12/23 Rx metformin 500 mg tablet,extended 500 mg PO DAILY #90 tabs 03/28/23 09/12/23 Rx release 24 hr empagliflozin 25 mg tablet 25 mg PO DAILY 90 days #90 tabs 06/05/23 09/12/23 Rx (Jardiance) amlodipine 10 mg tablet 10 mg PO QAM #90 tabs 06/06/23 09/12/23 Rx levothyroxine 50 mcg tablet 50 mcg PO QAM #90 tabs 06/07/23 09/12/23 Rx lisinopril 40 mg tablet 40 mg PO QAM #90 tabs 06/07/23 09/12/23 Rx fluticasone 100 mcg-salmeterol 50 1 inh inhalation BID 30 days #60 ea 09/02/23 09/12/23 Rx mcg/dose blistr powdr for inhalation (Wixela Inhub) metoprolol succinate 25 mg 25 mg PO DAILY #30 tabs 09/02/23 09/12/23 Rx tablet,extended release 24 hr triamcinolone acetonide 0.1 % 1 applic topical DAILY #30 grams 09/02/23 09/12/23 Rx topical cream vitamins A,C,T-atwv-fbwior 2,148 2 tab PO BID 09/12/23 09/12/23 History mcg-113 mg-45 mg-17.4 mg tablet Past Med/Surg History Medical History Phlegm in throat History of colon cancer partial colectomy > no chemo Esophageal reflux mild > no meds Hypothyroidism Prostate cancer 2011 > seeds for treatment> just monitoring> levels have not gone up since Hyperlipidemia 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 Villalobos Chronic obstructive pulmonary disease Thrombocytopenia Prostate cancer (11/01/11) "Rising PSA clinical stage TIc Status post ultrasound-guided biopsies. Biopsy stage T2a Raphael grade 3+3 and 3+4 Status post seed implant with cesium 131 as monotherapy 01/22/2012 " Surgical History History of cataract surgery B/L August and September 2021 History of colonoscopy Hx of inguinal hernia repair left S/P trigger finger release several History of tooth extraction Hx of surgical procedure parotid gland surgery left side S/P partial colectomy Family History Mother Hypertension Father Cancer lung Denies family history of Ovarian cancer Prostate cancer Kidney disease Myocardial infarction Breast cancer Colorectal cancer Social History Smoking Status: Unknown if ever smoked Tobacco Type: Cigarettes Age Started Using Tobacco: 18; Age Quit Using Tobacco: 59; packs per day: 1; Second Hand Exposure: No; Do You Dip or Chew Tobacco: No; Hx Alcohol Use: No Hx Substance Use: No Preferred Language: [place] Communication Ability: Effective Visual Impairment: No Limitations Hearing Ability: Use of Hearing Aid [employer] Required: No Beliefs That Will Affect Care: None marital status: / Current Living Situation: Alone current occupational status: retired 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[employer], 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 Feels Safe at Home: Yes Childhood Exposure to Second-Hand Smoke: Yes Diet: regular Dental Care, Regularly: Yes Physical Activity Frequency: Daily Seatbelt Use: always Sunscreen Use: Yes Assistive Devices: Glasses and Hearing Aid - Bilateral Review of Systems Review of Systems: The patient denies chest pain, palpitations, lower extremity swelling, sore throat, fevers, chills, sweats, nausea, vomiting, diarrhea , constipation, abdominal pain, pelvic pain, blood in urine or stool, dysuria, urinary frequency or urgency, lightheadedness, dizziness, headache, memory loss, loss of consciousness, rash, abnormal bruising or bleeding, imbalance, focal weakness, numbness or tingling in arms or legs, generalized arthralgias or myalgias, back or neck pain, or night sweats. The review of systems is otherwise negative other than for that already noted above, and at least 10 systems have been reviewed. Physical Exam Physical Exam: The patient is awake, alert and oriented 3, normocephalic and atraumatic, wearing BiPAP, sitting upright in bed, and in no acute distress. HEENT--PERRL, EOMI, mucous membranes and oropharynx dry. Neck--supple. No JVD. No bruits. Thyroid normal, trachea midline, no adenopathy. Heart--normal S1 and S2. No murmurs, rubs or gallops. Lungs--coarse breath sounds bilaterally with scattered wheezes. No further resp iratory distress while wearing BiPAP, no accessory muscle use. Abdomen--normal bowel sounds and soft. Nontender. Nondistended, no hernias or masses, no organomegaly. Extremities--no cyanosis or clubbing. No edema. There are good distal pulses b/l. Dermatologic--normal skin turgor, normal color, no abnormal lymph nodes, no rash. Neurologic--cranial nerves II through XII grossly intact. Rheumatologic--normal range of motion. Psychiatric--normal affect. Results & Data Results & Data Vital Signs (Past 12 Hours) Vital Signs Temp Pulse Pulse Resp BP Pulse Ox O2 Del Method 09/13/23 00:11 94 H 09/12/23 23:30 83 20 121/60 96 BiPAP 09/12/23 22:32 104 H 20 100 09/12/23 22:30 104 H 22 146/73 H 96 BiPAP 09/12/23 22:00 115 H 22 140/75 99 BiPAP 09/12/23 21:18 73 24 99 BiPAP 09/12/23 21:00 85 24 146/68 H 100 BiPAP 09/12/23 20:31 100 BiPAP 09/12/23 20:31 BiPAP 09/12/23 20:30 85 28 H 157/80 H 100 BiPAP 09/12/23 20:27 87 27 H 96 09/12/23 20:27 87 29 H 95 BiPAP 09/12/23 20:00 100 H 09/12/23 19:55 36.6 C 99 H 24 172/90 H 71 L Room Air O2 Flow Rate FiO2 09/13/23 00:11 09/12/23 23:30 28 09/12/23 22:32 28 09/12/23 22:30 28 09/12/23 22:00 28 09/12/23 21:18 28 09/12/23 21:00 28 09/12/23 20:31 28 09/12/23 20:31 28 09/12/23 20:30 28 09/12/23 20:27 28 09/12/23 20:27 28 09/12/23 20:00 09/12/23 19:55 Laboratory Results Laboratory Results WBC 16.22 K/ul (4.8-10.8) H 09/12/23 20:14 RBC 5.83 M/uL (4.70-6.10) 09/12/23 20:14 Hgb 17.3 g/dl (14.0-18.0) 09/12/23 20:14 Hct 53.5 % (42.0-52.0) H 09/12/23 20:14 MCV 91.8 fL (80.0-100.0) 09/12/23 20:14 MCH 29.7 pg (25.0-34.0) 09/12/23 20:14 MCHC 32.3 g/dL (32.0-36.0) 09/12/23 20:14 RDW Std Deviation 43.8 fL (36.4-46.3) 09/12/23 20:14 RDW Coeff of Mode 13.0 % (11.5-14.5) 09/12/23 20:14 Plt Count 124 K/uL (130-400) L 09/12/23 20:14 MPV 8.7 fL (9.4-12.4) L 09/12/23 20:14 Immature Gran % (Auto) 0.5 % 09/12/23 20:14 Neut % (Auto) 73.9 % 09/12/23 20:14 Lymph % (Auto) 14.9 % 09/12/23 20:14 [place] % (Auto) 10.2 % 09/12/23 20:14 Eos % (Auto) 0.2 % 09/12/23 20:14 Baso % (Auto) 0.3 % 09/12/23 20:14 Neut # (Auto) 11.99 K/uL (1.40-6.50) H 09/12/23 20:14 Lymph # (Auto) 2.42 K/uL (1.20-3.40) 09/12/23 20:14 [place] # (Auto) 1.65 K/uL (0.11-0.59) H 09/12/23 20:14 Eos # (Auto) 0.03 K/uL (0.00-0.50) 09/12/23 20:14 Baso # (Auto) 0.05 K/uL (0.00-0.20) 09/12/23 20:14 Immature Gran # (Auto) 0.08 K/uL (0.01-0.20) 09/12/23 20:14 PT 12.1 Seconds (9.0-12.0) H 09/12/23 20:14 INR 1.1 (0.9-1.1) 09/12/23 20:14 APTT 31 Seconds (21-31) 09/12/23 20:14 PTT Ratio 1.1 09/12/23 20:14 VBG pH 7.24 (7.36-7.41) L 09/12/23 20:14 VBG pCO2 68 mmHg (38-50) H 09/12/23 20:14 VBG pO2 49 mmHg 09/12/23 20:14 VBG HCO3 29 mmol/L 09/12/23 20:14 VBG O2 Saturation 69.5 % 09/12/23 20:14 VBG Base Excess 0 mEq/L 09/12/23 20:14 Sodium 134 mmol/L (136-145) L 09/12/23 20:14 Potassium 3.9 mmol/L (3.5-5.1) 09/12/23 20:14 Chloride 95 mmol/L (98-107) L 09/12/23 20:14 Carbon Dioxide 26 mmol/L (21-32) 09/12/23 20:14 Anion Gap 13 (3-11) H 09/12/23 20:14 BUN 13 mg/dl (6-23) 09/12/23 20:14 Creatinine 1.03 mg/dl (0.6-1.4) 09/12/23 20:14 Est Cr Clr Drug Dosing Not Reportable 09/12/23 20:14 Est GFR ( Amer) 74.3 ml/min 09/12/23 20:14 Est GFR (Non-Af Amer) 64.1 ml/min 09/12/23 20:14 BUN/Creatinine Ratio 12.6 (10-20) 09/12/23 20:14 Glucose 142 mg/dl (70-99(Fasting)) H 09/12/23 20:14 Calcium 9.5 mg/dl (8.6-10.3) 09/12/23 20:14 Troponin I High Sens 17.3 pg/ml (0-20) 09/12/23 20:14 B-Natriuretic Peptide 225 pg/ml (0-100) H 09/12/23 20:14 Lipase 27 U/L (11-82) 09/12/23 20:14 Adenovirus (PCR) Not Detected (NotDetected) 09/12/23 20:14 B. pertussis DNA (PCR) Not Detected (NotDetected) 09/12/23 20:14 B.parapertussis DNA PCR Not Detected (NotDetected) 09/12/23 20:14 C. pneumoniae DNA (PCR) Not Detected (NotDetected) 09/12/23 20:14 Coronavirus OC43 (PCR) Not Detected (NotDetected) 09/12/23 20:14 Coronavirus HKU1 (PCR) Not Detected (NotDetected) 09/12/23 20:14 Coronavirus 229E (PCR) DETECTED (NotDetected) A* 09/12/23 20:14 SARS-CoV-2 (PCR) Not Detected (NotDetected) 09/12/23 20:14 Coronavirus NL63 (PCR) Not Detected (NotDetected) 09/12/23 20:14 Human Metapneumovir PCR Not Detected (NotDetected) 09/12/23 20:14 Influenza Type A (PCR) Not Detected (NotDetected) 09/12/23 20:14 Influenza Type B (PCR) Not Detected (NotDetected) 09/12/23 20:14 M. pneumoniae (PCR) Not Detected (NotDetected) 09/12/23 20:14 Parainfluenza 1 (PCR) Not Detected (NotDetected) 09/12/23 20:14 Parainfluenza 2 (PCR) Not Detected (NotDetected) 09/12/23 20:14 Parainfluenza 3 (PCR) Not Detected (NotDetected) 09/12/23 20:14 Parainfluenza 4 (PCR) Not Detected (NotDetected) 09/12/23 20:14 RSV (PCR) Not Detected (NotDetected) 09/12/23 20:14 Entero/Rhino (PCR) Not Detected (NotDetected) 09/12/23 20:14 Code Status & VTE Plan Code Status Full code VTE Prophylaxis Plan VTE Prophylaxis will be ordered: Yes PG Care Time/CCT Total # of Minutes Spent Total Time Spent with Patient: Total time spent is greater than 50% in coordination of care (as documented) at patient's floor/unit and/or counseling patient: Coding Level of Care Code 78494 INT INP/OBS CARE 3/75MIN Diagnoses Acute respiratory failure with hypoxia J96.01 Coronavirus infection B34.2 COPD exacerbation J44.1 MGUS (monoclonal gammopathy of unknown significance) D47.2 Hyperlipidemia E78.5 Esophageal reflux K21.9 Chronic kidney disease, stage III (moderate) N18.3 Hypertension I10 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
[2023-09-13] MEDS ORDERED: NSS + 20MEQ KCL 20 MEQ/1,000 ML BAG IV SCH (00:51)
[2023-09-13] MEDS ORDERED: GLUCOSE 10 TAB/TUBE PO PRN (00:51)
[2023-09-13] MEDS ORDERED: GLUCOSE 40% GEL 15 GM TUBE PO PRN (00:51)
[2023-09-13] MEDS ORDERED: DEXTROSE 50% 50 ML SYRINGE IV PRN (00:51)
[2023-09-13] MEDS ORDERED: ALBUTEROL HFA 8 GM INHALER INH PRN (00:51)
[2023-09-13] MEDS ORDERED: ONDANSETRON INJ 2 MG/ML 2 ML VIAL IV PRN (00:51)
[2023-09-13] MEDS ORDERED: GLUCAGON FOR INJ 1 MG VIAL SQ PRN (00:51)
[2023-09-13] MEDS ORDERED: ACETAMINOPHEN 325 MG TAB PO PRN (00:51)
[2023-09-13] MEDS ORDERED: CARBOHYDRATES FOR HYPOGLYCEMIA PO PRN (00:51)
[2023-09-13] MEDS ORDERED: ALBUT/IPRATROP 3MG/0.5MG NEB 3 ML VIAL NEB PRN (01:01)
[2023-09-13] MEDS: Patient's HEIGHT &/or WEIGHT Needed SCH ×4 (01:17→04:43)
[2023-09-13] MEDS: cefTRIAXone SODIUM 2,000 MG in DEXTROSE 5 % MINI-B 50 ML IV SCH (02:22)
[2023-09-13] MEDS: ALBUT/IPRATROP 3MG/0.5MG NEB 3 ML VIAL NEB SCH ×4 (05:23→20:14)
[2023-09-13] MEDS: LEVOTHYROXINE SODIUM 50 MCG TABLET PO SCH (06:47)
[2023-09-13] MEDS: ENOXAPARIN INJ 40 MG/0.4 ML SYR SQ SCH (06:47)
[2023-09-13 07:00] LABS: Estimated Average Glucose 157 mg/dl; Hemoglobin A1C 7.1 % (4.5-5.6)
[2023-09-13] MEDS: FLUTICASONE/VILANTEROL 100/25MCG 14 PUFFS/INHALER INH SCH (08:02)
[2023-09-13] MEDS: MULTIVITAMIN TAB PO SCH (08:04)
[2023-09-13] MEDS: FUROSEMIDE 40 MG TAB PO SCH (08:04)
[2023-09-13] MEDS: lisinopril 40 MG TAB PO SCH (08:04)
[2023-09-13] MEDS: amLODIPine BESYLATE 5 MG TAB PO SCH (08:04)
[2023-09-13] MEDS: guaiFENesin 600 MG TABCR PO SCH ×2 (08:04→21:20)
[2023-09-13] MEDS: methylPREDNISolone 40 MG in SYRINGE 0 ML IV SCH ×2 (08:04→21:20)
[2023-09-13] MEDS: METOPROLOL SUCC 25MG EXT REL TAB PO SCH (08:04)
[2023-09-13] MEDS: SIMETHICONE 80 MG CHEW PO SCH ×4 (08:05→21:20)
--- NOTE | 2023-09-13 08:20 | XRay Report ---
XR chest 1V portable CLINICAL HISTORY: Chest pain, nonspecific TECHNIQUE: Single frontal radiograph of the chest was obtained. Comparison: Comparison is made to chest radiograph 11/03/2015 FINDINGS: No lines and tubes are seen. Calcified aortic knob is seen. Faint airspace opacity in the right midlu ng. No evidence of pleural effusion or pneumothorax. IMPRESSION: Faint airspace opacity in the right midlung which may represent atelectasis, pneumonia, and/or aspira tion. ACT 112: Negative or not required by law. Electronically signed by: Toney Jones M.D. 09/13/2023 8:19 AM
[2023-09-13] MEDS ORDERED: [UNRECOGNIZED DRUG - OTHER] PO SCH (09:00)
[2023-09-13] MEDS ORDERED: VITAMINS A C E ZINC COPPER PO SCH (09:00)
[2023-09-13] MEDS: INSULIN ASPART PER UNIT CHARGE SC SCH ×4 (09:30→21:20)
--- NOTE | 2023-09-13 16:14 | Communication Note ---
Date of Service: September 13, 2023 Please refer to the H&P dictated by Dr. Sylvester earlier this morning for details of presentation on admission. In brief, the patient presented with shortness of breath over the past 2 to 3 days. He presented with acute hypoxic respiratory failure, COPD exacerbation, and pneumonia due to bacterial superinfection. He tested positive for coronavirus (not COVID-19). He is being treated with steroids, IV antibiotics, DuoNebs. He is clinically feeling much better. I plan to continue current treatment.
--- NOTE | 2023-09-13 17:23 | Electrocardiogram Report ---
Test Reason : Blood Pressure : / mmHG Vent. Rate : 096 BPM Atrial Rate : 096 BPM P-R Int : 212 ms QRS Dur : 082 ms QT Int : 338 ms P-R-T Axes : 074 030 056 degrees QTc Int : 427 ms Sinus rhythm with 1st degree A-V block with occasional , and consecutive Premature ventricular comple xes Nonspecific ST abnormality Abnormal ECG When compared with ECG of 12-JUL-2014 09:55, Premature ventricular complexes are now Present [place] interval has increased Confirmed by Terry Pete ([id number]) on 09/13/2023 5:23:29 PM Referred By: REFERRED SELF Confirmed By:Duke Pete
[2023-09-13] MEDS: ATORVASTATIN 20 MG TAB PO SCH (21:19)
[2023-09-13] MEDS: TIMOLOL MALEATE 0.5% OP SOLN 5 ML BTL OP SCH (21:20)
[2023-09-13] MEDS: AZITHROMYCIN 500 MG in DEXTROSE 5% 250 ML IV SCH (21:45)
[2023-09-14] MEDS: cefTRIAXone SODIUM 2,000 MG in DEXTROSE 5 % MINI-B 50 ML IV SCH (02:07)
[2023-09-14] MEDS: LEVOTHYROXINE SODIUM 50 MCG TABLET PO SCH (05:41)
[2023-09-14] MEDS: ENOXAPARIN INJ 40 MG/0.4 ML SYR SQ SCH (05:41)
[2023-09-14 07:16] LABS: Basophils # (auto) 0.02 K/uL (0.00-0.20); Basophils % (auto) 0.1 %; Hematocrit (blood only) 46.8 % (42.0-52.0); Hemoglobin 15.4 g/dl (14.0-18.0); Immature Granulocytes # (auto) 0.07 K/uL (0.01-0.20); Immature Granulocytes % (auto) 0.5 %; Lymphocytes # (auto) 0.95 K/uL (1.20-3.40); Lymphocytes % (auto) 6.8 %; Mean Corpuscular Hemoglobin 29.9 pg (25.0-34.0); Mean Corpuscular Hgb Conc 32.9 g/dL (32.0-36.0); Mean Corpuscular Volume 90.9 fL (80.0-100.0); Mean Platelet Volume 8.9 fL (9.4-12.4); Monocytes # (auto) 0.72 K/uL (0.11-0.59); Monocytes % (auto) 5.1 %; Neutrophils # (auto) 12.31 K/uL (1.40-6.50); Neutrophils % (auto) 87.5 %; Platelet Count 111 K/uL (130-400); RDW Coefficient of Variation 13.1 % (11.5-14.5); RDW Standard Deviation 43.9 fL (36.4-46.3); Red Blood Count 5.15 M/uL (4.70-6.10); White Blood Count 14.07 K/ul (4.8-10.8)
[2023-09-14] MEDS: ALBUT/IPRATROP 3MG/0.5MG NEB 3 ML VIAL NEB SCH ×4 (07:17→19:39)
[2023-09-14 08:16] LABS: Albumin Level 3.6 gm/dl (3.4-5.0); BUN Creatinine Ratio 24.8 (10-20); Calcium 8.8 mg/dl (8.6-10.3); Creatinine Clr Calc Pharmacy 44.8 ml/min; Est GFR (African American) 61.1 ml/min; Est GFR (Non-African American) 52.8 ml/min; Magnesium 2.4 mg/dl (1.7-2.4); Phosphorus 3.7 mg/dl (2.5-4.9); Potassium 4.7 mmol/L (3.5-5.1)
[2023-09-14] MEDS: INSULIN ASPART PER UNIT CHARGE SC SCH ×4 (08:30→21:07)
[2023-09-14] MEDS: guaiFENesin 600 MG TABCR PO SCH ×2 (08:31→21:06)
[2023-09-14] MEDS: methylPREDNISolone 40 MG in SYRINGE 0 ML IV SCH (08:31)
[2023-09-14] MEDS: SIMETHICONE 80 MG CHEW PO SCH ×4 (08:31→21:07)
[2023-09-14] MEDS: MULTIVITAMIN TAB PO SCH (08:32)
[2023-09-14] MEDS: lisinopril 40 MG TAB PO SCH (08:32)
[2023-09-14] MEDS: FLUTICASONE/VILANTEROL 100/25MCG 14 PUFFS/INHALER INH SCH (08:32)
[2023-09-14] MEDS: FUROSEMIDE 40 MG TAB PO SCH (08:32)
[2023-09-14] MEDS: METOPROLOL SUCC 25MG EXT REL TAB PO SCH (08:32)
[2023-09-14] MEDS: amLODIPine BESYLATE 5 MG TAB PO SCH (08:32)
[2023-09-14] MEDS: Patient's HEIGHT &/or WEIGHT Needed SCH (10:48)
--- NOTE | 2023-09-14 13:32 | Hospitalist Progress Note ---
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 prednisone tomorrow Will hold off on further doses of IV Solu-Medrol Will order a two-step rest and exercise tomorrow Continue droplet precautions Continue DuoNebs Diabetes mellitus- Hold empagliflozin and metformin Placed on Accu-Cheks with NovoLog SSI, expect increase while on steroids Stop IV Solu-Medrol Hypertension- Continue amlodipine, furosemide, and lisinopril Full code DVT prophylaxis: Lovenox Admission and Anticipated Discharge Date Admission Date: September 13, 2023 Subjective Patient feels better overall. Breathing better. On 3 L of oxygen. Review of Systems Review of Systems: All systems reviewed & are unremarkable except as noted in Subjective Physical Exam Physical Exam: General: Awake, conversant Heart: S1, S2/regular rate and rhythm, no murmur rubs or gallops Lungs: Diminished breath sounds. No wheezes heard. Abdomen: Soft/nontender/nondistended. No hepatosplenomegaly Extremities: No clubbing/cyanosis. No edema Behavior: Appropriate, cooperative Results & Data Results & Data Vital Signs (Past 12 Hours) Vital Signs Temp Pulse Pulse Resp BP Pulse Ox O2 Del Method 09/14/23 11:10 78 18 96 Nasal Cannula 09/14/23 10:59 36.6 C 74 18 105/60 96 Nasal Cannula 09/14/23 08:36 36.9 C 92 H 19 132/69 94 Nasal Cannula 09/14/23 08:00 Nasal Cannula 09/14/23 07:30 72 09/14/23 07:18 79 18 91 Nasal Cannula 09/14/23 03:51 37.1 C 70 18 104/63 97 Nasal Cannula O2 Flow Rate 09/14/23 11:10 3 09/14/23 10:59 2.0 09/14/23 08:36 2.0 09/14/23 08:00 2 09/14/23 07:30 09/14/23 07:18 2 09/14/23 03:51 2.0 Laboratory Results Abnormal lab results 09/13/23 09/13/23 09/14/23 Range/Units 16:26 20:30 06:51 WBC 14.07 H (4.8-10.8) K/ul Plt Count 111 L (130-400) K/uL MPV 8.9 L (9.4-12.4) fL Neut # (Auto) 12.31 H (1.40-6.50) K/uL Lymph # (Auto) 0.95 L (1.20-3.40) K/uL [place] # (Auto) 0.72 H (0.11-0.59) K/uL BUN 30 H (6-23) mg/dl BUN/Creatinine Ratio 24.8 H (10-20) Glucose 166 H (70-99(Fasting)) mg/dl POC Glucose 254 H 148 H (70-99) mg/dl 09/14/23 09/14/23 Range/Units 07:24 11:02 WBC (4.8-10.8) K/ul Plt Count (130-400) K/uL MPV (9.4-12.4) fL Neut # (Auto) (1.40-6.50) K/uL Lymph # (Auto) (1.20-3.40) K/uL [place] # (Auto) (0.11-0.59) K/uL BUN (6-23) mg/dl BUN/Creatinine Ratio (10-20) Glucose (70-99(Fasting)) mg/dl POC Glucose 136 H 289 H (70-99) mg/dl PG Care Time/CCT Total # of Minutes Spent Total Time Spent with Patient: Total time spent is greater than 50% in coordination of care (as documented) at patient's floor/unit and/or counseling patient: Coding Level of Care Code 42392 SUB INP/OBS CARE 2/35MIN Diagnoses Acute respiratory failure with hypoxia J96.01 Coronavirus infection B34.2 COPD exacerbation J44.1 MGUS (monoclonal gammopathy of unknown significance) D47.2 Hyperlipidemia E78.5 Esophageal reflux K21.9 Chronic kidney disease, stage III (moderate) N18.3 Hypertension I10 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
[2023-09-14] MEDS: ATORVASTATIN 20 MG TAB PO SCH (21:05)
[2023-09-14] MEDS: TIMOLOL MALEATE 0.5% OP SOLN 5 ML BTL OP SCH (21:06)
[2023-09-14] MEDS: AZITHROMYCIN 500 MG in DEXTROSE 5% 250 ML IV SCH (22:37)
[2023-09-15] MEDS: cefTRIAXone SODIUM 2,000 MG in DEXTROSE 5 % MINI-B 50 ML IV SCH (03:17)
[2023-09-15] MEDS: ENOXAPARIN INJ 40 MG/0.4 ML SYR SQ SCH (06:12)
[2023-09-15] MEDS: LEVOTHYROXINE SODIUM 50 MCG TABLET PO SCH (06:12)
[2023-09-15] MEDS: ALBUT/IPRATROP 3MG/0.5MG NEB 3 ML VIAL NEB SCH ×3 (06:55→14:14)
[2023-09-15 07:21] LABS: Basophils # (auto) 0.03 K/uL (0.00-0.20); Basophils % (auto) 0.2 %; Hematocrit (blood only) 48.5 % (42.0-52.0); Immature Granulocytes # (auto) 0.08 K/uL (0.01-0.20); Immature Granulocytes % (auto) 0.5 %; Lymphocytes # (auto) 1.93 K/uL (1.20-3.40); Lymphocytes % (auto) 11.7 %; Mean Corpuscular Hemoglobin 30.1 pg (25.0-34.0); Mean Corpuscular Volume 91.3 fL (80.0-100.0); Mean Platelet Volume 8.7 fL (9.4-12.4); Monocytes # (auto) 1.85 K/uL (0.11-0.59); Monocytes % (auto) 11.2 %; Neutrophils # (auto) 12.64 K/uL (1.40-6.50); Neutrophils % (auto) 76.4 %; Platelet Count 129 K/uL (130-400); RDW Coefficient of Variation 13.3 % (11.5-14.5); RDW Standard Deviation 45.1 fL (36.4-46.3); Red Blood Count 5.31 M/uL (4.70-6.10); White Blood Count 16.53 K/ul (4.8-10.8)
[2023-09-15 07:44] LABS: Albumin Level 3.7 gm/dl (3.4-5.0); BUN Creatinine Ratio 28.8 (10-20); Calcium 8.7 mg/dl (8.6-10.3); Creatinine Clr Calc Pharmacy 45.9 ml/min; Est GFR (Non-African American) 54.4 ml/min; Magnesium 2.3 mg/dl (1.7-2.4); Phosphorus 3.3 mg/dl (2.5-4.9); Potassium 4.2 mmol/L (3.5-5.1)
[2023-09-15] MEDS: FUROSEMIDE 40 MG TAB PO SCH (08:17)
[2023-09-15] MEDS: METOPROLOL SUCC 25MG EXT REL TAB PO SCH (08:17)
[2023-09-15] MEDS: amLODIPine BESYLATE 5 MG TAB PO SCH (08:17)
[2023-09-15] MEDS: MULTIVITAMIN TAB PO SCH (08:17)
[2023-09-15] MEDS: guaiFENesin 600 MG TABCR PO SCH (08:18)
[2023-09-15] MEDS: SIMETHICONE 80 MG CHEW PO SCH ×2 (08:18→12:15)
[2023-09-15] MEDS: lisinopril 40 MG TAB PO SCH (08:18)
[2023-09-15] MEDS: FLUTICASONE/VILANTEROL 100/25MCG 14 PUFFS/INHALER INH SCH (08:18)
[2023-09-15] MEDS: INSULIN ASPART PER UNIT CHARGE SC SCH ×2 (08:23→12:18)
[2023-09-15] MEDS ORDERED: predniSONE 20 MG TAB PO SCH (09:00)
--- NOTE | 2023-09-15 10:51 | Discharge Summary ---
Date of Service September 15, 2023 Admission HPI Per Admitting Provider The patient is an 88-year-old male with a past medical history including vitamin D deficiency, MGUS, hypothyroidism, hyperlipidemia, GERD, COPD, CKD stage III, hypertension, diabetes mellitus and history of tobacco last use in the . He has become progressively more short of breath over the past 2 to 3 days, which began before administration of the recent RSV vaccine. In the emergency department, due to hypoxia, he was placed on BiPAP, and given an hour-long DuoNeb treatment and Solu-Medrol 125 mg IV, which he reports has made his breathing significantly improved Principal Diagnosis Acute hypoxic respiratory failure COPD exacerbation Coronavirus infection (not COVID) Superimposed bacterial pneumonia Discharge Exam General: Awake, conversant Heart: S1, S2/regular rate and rhythm, no murmur rubs or gallops Lungs: Diminished breath sounds. No wheezes heard. Abdomen: Soft/nontender/nondistended. No hepatosplenomegaly Extremities: No clubbing/cyanosis. 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 Patient will be needing 4 L of oxygen upon exertion. Diabetes mellitus- Resume empagliflozin and metformin Placed on Accu-Cheks with NovoLog SSI, expect increase while on steroids Stopped IV Solu-Medrol Hypertension- Continue amlodipine, furosemide, and lisinopril Full code DVT prophylaxis: Lovenox Disposition: Discharged today Total Time Total Time Spent Total Time Spent (In Minutes): 35 Discharge Plan Discharge Items Patient Disposition: Home - Self-Care Reason For Visit: ACUTE RESP FAILURE W/ HYPOXIA, VIRAL/BACT PNEUMONI Discharge Diagnosis: Acute hypoxic respiratory failure COPD exacerbation Coronavirus infection (not COVID) Superimposed bacterial pneumonia Activity: Resume your previous activity Non-emergency contact: Primary Care Provider Call non-emergency contact if: you have any medication questions and your symptoms worsen Follow-up/Referrals: Prisca Arenas MD [Primary Care Provider] - 09/20/23 1:00 pm Diet: Heart Healthy Addtl Attending Provider Instructions: Advised to follow-up with PCP in 1 week Pending Studies at Discharge: No Stand-Alone Forms: [facility] Medications and DC Order Prescriptions: New prednisone 10 mg tablet 10 mg PO DAILY Qty: 20 0RF Rx Instructions: 4 tabs for 2 days, then drop by 1 tab every 2 days, then stop cephalexin 500 mg capsule 500 mg PO BID 5 Days Qty: 10 0RF azithromycin 250 mg tablet 250 mg PO DAILY 3 Days Qty: 3 0RF Rx Instructions: start on day 2 of therapy ipratropium-albuterol 0.5 mg-3 mg(2.5 mg base)/3 mL Solution For Nebulization 3 ml NEB QIDR Qty: 90 0RF Continued clotrimazole [Antifungal (clotrimazole)] 1 % cream 1 applic topical BID 7 Days Qty: 15 0RF furosemide 40 mg tablet 40 mg PO QAM Qty: 90 3RF atorvastatin 20 mg tablet 20 mg PO PM Qty: 90 3RF metformin 500 mg tablet extended release 24 hr 500 mg PO DAILY Qty: 90 3RF Jardiance 25 mg tablet 25 mg PO DAILY 90 Days Qty: 90 3RF amlodipine 10 mg tablet 10 mg PO QAM Qty: 90 3RF levothyroxine 50 mcg tablet 50 mcg PO QAM Qty: 90 3RF lisinopril 40 mg tablet 40 mg PO QAM Qty: 90 3RF econazole 1 % cream 1 appln topical BID PRN (Reason: Rash) Qty: 60 fluocinonide 0.1 % cream 1 appln topical BID PRN (Reason: Rash) Qty: 1 albuterol sulfate 90 mcg/actuation HFA aerosol inhaler 2 puffs inhalation Q4H PRN (Reason: Wheezing) Qty: 1 timolol maleate 0.5 % drops 1 drops OP HS metoprolol succinate 25 mg tablet extended release 24 hr 25 mg PO DAILY Qty: 30 2RF triamcinolone acetonide 0.1 % cream 1 applic topical DAILY Qty: 30 0RF fluticasone propion-salmeterol [Wixela Inhub] 100-50 mcg/dose blister with device 1 inh inhalation BID 30 Days Qty: 60 3RF multivitamin Tablet 1 tab PO QAM vitamins A,C,F-pfnc-ptuxxm 2,148 mcg-113 mg-45 mg-17.4mg Tablet 2 tab PO BID Rx Instructions: administer with AM and PM meals Discharge Orders: Discharge Order (Routine); Ordered 09/15/23 Ordered By: Brendan Maki Admission Data Admit Date/Time: 09/13/23 00:33 Attending Provider: Brendan Maki Admit Provider: Manohar Olson Primary Care Provider: Prisca Arenas Other Providers: Manohar Olson Other Interventions: Discharge Summary Assessment (RN) Last Done: 09/15/23 10:53 Coding Level of Care Code 52483 INP/OBS DISCH >30 MIN Diagnoses Acute respiratory failure with hypoxia J96.01 Coronavirus infection B34.2 COPD exacerbation J44.1 MGUS (monoclonal gammopathy of unknown significance) D47.2 Hyperlipidemia E78.5 Esophageal reflux K21.9 Chronic kidney disease, stage III (moderate) N18.3 Hypertension I10 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
== END 2023-09-15 15:11 | disposition home or self-care (01) | DRG 865 ==
LOC: ED 19:40 → EDINP 09-13 00:33 → SUATTDRO 09-13 00:33 → 2E 09-13 00:52